=== PATIENT | male | born 1970 | race Caucasian/White ===

== ENCOUNTER 2024-01-27 06:40 | Outpatient (CLI) | payer BC ==
[~2024-01-27 06:40] MED LIST: CHOL20004 PO; CYAN250010 PO; GADOTERATE MEGLUMINE 7.5 MMOL/15 ML VIAL IV ONE; KRIL500C PO; LIDOcaine 1% (10mg/ml) 2ml vial ONE; LIDOcaine 1% 30ml preserv. free vial ONE; MAGN500P34; MELA10TA2 PO; MULT-1249; NAPR-996 PO; VITA-268 PO; [UNRECOGNIZED DRUG - CODE]; iohexol 300 MG/1 ML 50ml polymer ONE
== END 2024-01-27 23:59 | disposition home or self-care (01) ==
LOC: RAD 06:40
PROVIDERS: ATTEND Family Medicine Sports Medicine
DX: M75.112 Incomplete rotator cuff tear or rupture of left shoulder, not specified as traumatic (principal); M19.011 Primary osteoarthritis, right shoulder
CPT/HCPCS: 23350; 73222; 77002; A9575; J3490; Q9967; 73040